=== PATIENT | male | born 1955 | race American Indian/Alaskan Native ===

== ENCOUNTER 2017-06-27 15:23 | Emergency (ER) | payer BC, MEDICAID ==
[2017-06-27 15:46] VITALS: BP 154/77; PULSE 78; RESP 16; TEMP 98.1; O2SAT 99
--- NOTE | 2017-06-27 16:36 | ED PDOC ---
HPI: Dental Pain/Injury Time Seen by Provider: 06/27/17 15:54 Chief Complaint (Nursing): Dental Pain Chief Complaint (Provider): Dental Pain History Per: Patient History/Exam Limitations: no limitations Additional Complaint(s): 61-year-old male presents with dental pain status post eating a sandwich and feeling tooth break when he bit down. Injury occurred yesterday. Patient is now having difficulty eating solids. He has mild pain to the affected area and noticed some swelling to the surrounding gums. No fever or chills. PMD: none Past Medical History Reviewed: Historical Data, Nursing Documentation, Vital Signs Vital Signs: Last Vital Signs Temp 98.1 F 06/27/17 15:43 Pulse 78 06/27/17 15:43 Resp 16 06/27/17 15:43 BP 154/77 H 06/27/17 15:43 Pulse Ox 99 06/27/17 15:43 - Medical History PMH: CAD - Family History Family History: States: No Known Family Hx - Living Arrangements Living Arrangements: With Family - Social History Current smoker - smoking cessation education provided: Yes Alcohol: Social Drugs: Denies - Home Medications Home Medications: Ambulatory Orders Medication Instructions Recorded Acetaminophen [Tylenol 325mg tab] 650 mg PO Q4 PRN #1 bottle 06/27/17 Amoxicillin 875 mg PO BID #14 tab 06/27/17 - Allergies Allergies/Adverse Reactions: Allergies Allergy/AdvReac Type Severity Reaction Status Date / Time No Known Allergies Allergy Verified 06/27/17 15:43 Review of Systems ROS Statement: Except As Marked, All Systems Reviewed And Found Negative (As per HPI, otherwise negative) Constitutional: Negative for: Fever, Chills ENT: Positive for: Other (dental trauma) Neurological: Negative for: Headache Physical Exam - Reviewed Nursing Documentation Reviewed: Yes Vital Signs Reviewed: Yes - Physical Exam Appears: Positive for: Well, Non-toxic, No Acute Distress Skin: Positive for: Normal Color. Negative for: Rash Eye Exam: Positive for: Normal appearance ENT: Positive for: Other (Right upper incisor tooth is loose with tenderness to palpation. Minimal surrounding gingival swelling with no dental abscess, airway patent, uvula midline) Neck: Positive for: Normal Neurologic/Psych: Positive for: Alert, Oriented (x3) - ECG O2 Sat by Pulse Oximetry: 99 (RA) Pulse Ox Interpretation: Normal Medical Decision Making Medical Decision Making: Time: 1634 Initial Impression: 61 year old male with dental trauma Initial Plan: --Tylenol 975 mg PO --Will Discharge with prescription for Tylenol and amoxicillin. Patient was instructed to follow up with dentist CHARLY. Patient was counseled Importance of smoking cessation. Scribe Attestation: Documented by Manjula Morales, acting as a scribe for Oriana Tubbs PA-C. Provider Scribe Attestation: All medical record entries made by the Scribe were at my direction and personally dictated by me. I have reviewed the chart and agree that the record accurately reflects my personal performance of the history, physical exam, medical decision making, and the department course for this patient. I have also personally directed, reviewed, and agree with the discharge instructions and disposition. Disposition - Clinical Impression Clinical Impression: Dental trauma - Patient ED Disposition Is Patient to be Admitted: No Counseled Patient/Family Regarding: Diagnosis, Need For Followup, Rx Given, Smoking Cessation - Disposition Referrals: [facility] [Outside] Disposition: Routine/Home Disposition Time: 16:52 Condition: STABLE Additional Instructions: Take prescription meds as directed. Liquids and soft foods only. Follow-up is as possible with dentist. Prescriptions: Acetaminophen [Tylenol 325mg tab] 650 mg PO Q4 PRN #1 bottle PRN Reason: Pain, Moderate (4-7) Amoxicillin 875 mg PO BID #14 tab Instructions: Fractured Tooth, Dental Pain (DC), Quitting Smoking Forms: [facility] (Slovenian)
== END 2017-06-27 17:09 | disposition home or self-care (01) ==
LOC: H.ER 15:23
DX: S02.5XXA Fracture of tooth (traumatic), initial encounter for closed fracture (principal); Y92.89 Other specified places as the place of occurrence of the external cause; I25.10 Atherosclerotic heart disease of native coronary artery without angina pectoris; F17.200 Nicotine dependence, unspecified, uncomplicated